=== PATIENT | female | born 2000 | race African-American/Black ===

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

== ENCOUNTER 2022-03-18 02:19 | Emergency (ER) | payer BC, SELFPAY ==
[2022-03-18 02:22] VITALS: BP 115/83; PULSE 92; RESP 18; TEMP 36.8; O2SAT 99
--- NOTE | 2022-03-18 02:32 | W.ED.GENAD ---
Discharge Plan Disposition Patient Disposition: Home Condition: Good Discharge Details Clinical Impression: Rash and nonspecific skin eruption Primary Care Provider: Rich Briscoe ED Provider: Rainer Starks Home Meds and New Rx's Prescriptions: New prednisone 50 mg tablet 50 mg PO DAILY Qty: 5 0RF loratadine 10 mg capsule 10 mg PO DAILY Qty: 14 0RF hydroxyzine HCl 25 mg tablet 25 mg PO TID PRNQty: 30 0RF Continued acetaminophen [Children's Pain-Fever Relief] 80 MG tablet,chewable 240 mg PO PRN PRN ibuprofen [Children's Ibuprofen] 100 MG/5 ML suspension 300 mg PO PRN PRN albuterol sulfate [ProAir HFA] 8.5 GM HFA aerosol inhaler 2 puff Inhalation PRN multivitamin 1 EACH capsule 1 tab PO DAILY Discharge Instructions Instructions: Acute Rash (ED) Additional Instructions: At this time your rash appears reflective of a mild allergic irritation. It is not clear what the initial causes at this time. Please take the steroid prednisone and the loratadine as directed to help improve this. You can take 25 mg of Benadryl every 6 hours as needed as well. Take the hydroxyzine/Atarax as needed for itching. Please perform an intricate food and exposure diary to look for any trends that could have brought this about. If you notice any worsening of your symptoms, or any new symptoms such as vomiting, diarrhea, fever, chills, shortness of breath, chest pain, numbness, weakness, or fainting , please return immediately to the emergency department for reevaluation. Please follow up with your primary care provider as soon as possible for reassessment and reevaluation. As always, it was a pleasure participating in your medical care today. Referrals: Rich Briscoe MD [Primary Care Provider] - Medical Decision Making 21-year-old -[place] female with no significant past medical history presents today for evaluation of rash. Patient states that 1 week ago she developed a mild rash on her chest and shoulders. It is notably itchy. She denies any new soaps, detergents, foods, clothing, animals, exposures or medications. She denies any oral lesions, or lesions on her hands or feet. She denies any fever or chills. She denies any headache or neck pain. She denies any other complaints at this time. Symptoms have not significantly improved with Benadryl. She denies any history of allergies or rash otherwise. No family history of psoriasis, or other skin issues. She currently uses Dove soap. M demonstrates mild erythema with a slightly raised component over the right shoulder left chest left chest right chest and right back. No lesions on the hands or feet or mouth. It is notably itchy. No vesicles. Rash appears similar to mild contact dermatitis. No lesions over the elbows or knees. No current clinical evidence of staph scalded skin syndrome, erythema multiforme, erythema migrans, toxic epidermal necrolysis, Oconnell-Anoop syndrome, Kawasaki-like rash, meningococcemia, pemphigus vulgaris, or necrotizing fasciitis. We will recommend Benadryl, loratadine, we will perform a steroid burst. Will give Atarax as needed for breakthrough itching. Discussed red flags for which to return. I have extensively reviewed the treatment plan and discharge instructions with the patient. I have addressed all patient concerns at this time. The patient was made aware of what symptoms to monitor for that would warrant a return to the emergency department. Discussed the plan with the patient, they demonstrate verbal understanding and agreement with our assessment and plan at this time. The documentation in this chart was dictated using [employer] dictation software. Please excuse any dictation errors. HPI General Date/Time Provider Initiated Documentation: 03/18/22 02:23. HPI Narrative: 21-year-old -[place]is[place] female with no significant past medical history presents today for evaluation of rash. Patient states that 1 week ago she developed a mild rash on her chest and shoulders. It is notably itchy. She denies any new soaps, detergents, foods, clothing, animals, exposures or medications. She denies any oral lesions, or lesions on her hands or feet. She denies any fever or chills. She denies any headache or neck pain. She denies any other complaints at this time. Symptoms have not significantly improved with Benadryl. She denies any history of allergies or rash otherwise. No family history of psoriasis, or other skin issues. She currently uses Dove soap. Related Data Home Medications Medication Instructions Recorded Confirmed acetaminophen 80 mg chewable 240 mg PO PRN PRN 07/26/12 05/11/16 tablet (Children's Pain and Fever Relief) ibuprofen 100 mg/5 mL oral 300 mg PO PRN PRN 07/26/12 05/11/16 suspension (Children's Ibuprofen) albuterol sulfate 90 mcg/actuation 2 puff inhalation PRN 05/11/16 aerosol inhaler (ProAir HFA) multivitamin 1 tab PO DAILY 05/11/16 05/11/16 hydroxyzine HCl 25 mg tablet 25 mg PO TID PRN #30 tabs 03/18/22 loratadine 10 mg capsule 10 mg PO DAILY #14 caps 03/18/22 prednisone 50 mg tablet 50 mg PO DAILY #5 tabs 03/18/22 Previous Rx's Medication Instructions Recorded hydroxyzine HCl 25 mg tablet 25 mg PO TID PRN #30 tabs 03/18/22 loratadine 10 mg capsule 10 mg PO DAILY #14 caps 03/18/22 prednisone 50 mg tablet 50 mg PO DAILY #5 tabs 03/18/22 Allergies Allergy/AdvReac Type Severity Reaction Status Date / Time No Known Allergies Allergy Unverified 05/11/16 15:20 Review of Systems All systems reviewed & are unremarkable except as noted in HPI and below PFSH All Active Problems Rash and nonspecific skin eruption (Acute) Social History Smoking/Tobacco Use Status: Never Smoking risk assessment performed?: Yes Drug use: Never Do you feel safe in your relationship?: Yes Exam Narrative Exam Narrative: 1.Const: Well-nourished, Well-developed, appearing stated age 2.Eyes: PERRL, no conjunctival injection, and symmetrical lids. 3.ENT: Atraumatic external nose and ears. Moist MM. Neck: Symmetric, trachea midline, No thyromegaly. 4.CVS: +S1/S2, No murmurs or gallops. Peripheral pulses 2+ and equal in all extremities. Brisk capillary refill in all extremities. 5.RESP: Unlabored respiratory effort. Clear to auscultation bilaterally. No wheezes rales or rhonchi 6.GI: Soft, Nontender/Nondistended, No hepatosplenomegaly. No guarding or rebound. 7.MSK: Normocephalic/Atraumatic, Extremities w/o deformity or ttp No cyanosis or clubbing, Normal movement of all extremities 8.Skin: Warm, Dry. Mild minimally erythematous slightly raised diffuse rash with ill-defined borders over the right shoulder, anterior chest, left chest, and right back. No genital lesions, no oral lesions, no lesions on the hands or feet. The area blanches well. Negative Nikolsky sign. No large vesicles or bulla. No palpable purpura. No oral lesions. No mucosal lesions. No evidence of severe cellulitis. No evidence of vaccine preventable rash. 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 Sensation grossly intact, no focal neurologic deficits. 10.Psych: (AAO) x3. Appropriate mood and affect
[2022-03-18] MEDS: Loratidine 10 MG TAB PO (02:38)
[2022-03-18] MEDS: hydrOXYzine HCL 25 MG TAB PO (02:38)
[2022-03-18] MEDS: predniSONE 20 MG TAB 60 MG PO (02:38)
== END 2022-03-18 02:44 | disposition home or self-care (01) ==
PROVIDERS: Emergency Provider Student in an Organized Health Care Education/Training Program; PCP Internal Medicine
DX: R21 Rash and other nonspecific skin eruption (principal)
CPT/HCPCS: 99283; 99284; J7512